=== PATIENT | female | born 1955 | race Caucasian/White ===

== ENCOUNTER 2016-12-30 16:58 | Inpatient (IN) | payer MEDICARE, BC ==
[~2016-12-30] VITALS: Ht 157.5 cm; Wt 86.2 kg
[2016-12-30 19:03] LABS: HEMOGLOBIN 12.1 gm/dl (12.3-15.3); RED BLOOD COUNT 4.46 M/UL (4.00-5.10); WHITE BLOOD COUNT 10.9 K/UL (4.5-11.0)
[2016-12-31 07:06] LABS: HEMOGLOBIN 11.1 gm/dl (12.3-15.3); RED BLOOD COUNT 4.15 M/UL (4.00-5.10); WHITE BLOOD COUNT 9.2 K/UL (4.5-11.0)
[2016-12-31] MEDS ORDERED: WARFARIN SODIUM5 MG PO (07:34)
[2016-12-31] MEDS ORDERED: COUMADIN2 MG PO (07:34)
[2016-12-31] MEDS ORDERED: CREON DR 24,001 EACH PO (07:35)
[2016-12-31] MEDS ORDERED: FERROUS SULFAT325 MG PO (07:35)
[2016-12-31] MEDS ORDERED: MULTIVITAMINS1 EAC1 PO (07:36)
[2016-12-31] MEDS ORDERED: PROBIOTIC1 EAC1 PO (07:36)
[2016-12-31] MEDS ORDERED: NOVOLOG FL100 UNIT/1 SQ (07:36)
[2016-12-31] MEDS ORDERED: IMDUR ER TAB 6060 MG PO (07:37)
[2016-12-31] MEDS ORDERED: LIPITOR TAB 1010 MG PO (07:37)
[2016-12-31] MEDS ORDERED: LOPRESSOR50 MG PO (07:37)
[2016-12-31] MEDS ORDERED: MAGNESIUM500 MG PO (07:38)
[2016-12-31] MEDS ORDERED: PROTONIX40 MG PO (07:38)
[2016-12-31] MEDS ORDERED: LANTUS SOL100 UNIT/1 SQ (07:38)
[2017-01-01 04:56] LABS: HEMOGLOBIN 10.7 gm/dl (12.3-15.3); RED BLOOD COUNT 3.98 M/UL (4.00-5.10)
[2017-01-01 05:12] LABS: WHITE BLOOD COUNT 6.5 K/UL (4.5-11.0)
[2017-01-02 05:42] LABS: RED BLOOD COUNT 4.09 M/UL (4.00-5.10); WHITE BLOOD COUNT 5.6 K/UL (4.5-11.0)
[2017-01-04 06:07] LABS: HEMOGLOBIN 10.7 gm/dl (12.3-15.3); RED BLOOD COUNT 4.07 M/UL (4.00-5.10); WHITE BLOOD COUNT 5.5 K/UL (4.5-11.0)
[2017-01-05 06:04] LABS: WHITE BLOOD COUNT 6.6 K/UL (4.5-11.0)
[2017-01-05 06:11] LABS: RED BLOOD COUNT 4.49 M/UL (4.00-5.10)
[2017-01-06 04:41] LABS: HEMOGLOBIN 10.9 gm/dl (12.3-15.3); RED BLOOD COUNT 4.11 M/UL (4.00-5.10); WHITE BLOOD COUNT 5.7 K/UL (4.5-11.0)
[2017-01-06] MEDS ORDERED: FLAGYL500 MG PO (08:18)
== END 2017-01-06 08:46 | disposition home or self-care (01) | DRG 394 ==
LOC: ER1 16:58 → ZEROF 23:46 → MED SURG 4 12-31 10:00
PROVIDERS: Emergency Medicine; Family Medicine; ADMIT Emergency Medicine
DX: K91.89 Other postprocedural complications and disorders of digestive system (principal); N39.0 Urinary tract infection, site not specified; A09 Infectious gastroenteritis and colitis, unspecified; K59.00 Constipation, unspecified; Z98.84 Bariatric surgery status; I12.9 Hypertensive chronic kidney disease with stage 1 through stage 4 chronic kidney disease, or unspecified chronic kidney disease; E11.22 Type 2 diabetes mellitus with diabetic chronic kidney disease; N18.3 Chronic kidney disease, stage 3 (moderate); E78.2 Mixed hyperlipidemia; K21.9 Gastro-esophageal reflux disease without esophagitis; G47.30 Sleep apnea, unspecified; Z96.643 Presence of artificial hip joint, bilateral; Z88.0 Allergy status to penicillin; Z79.01 Long term (current) use of anticoagulants; Z84.89 Family history of other specified conditions; Z83.3 Family history of diabetes mellitus; Z82.49 Family history of ischemic heart disease and other diseases of the circulatory system; Z82.62 Family history of osteoporosis; Z82.61 Family history of arthritis; Z85.07 Personal history of malignant neoplasm of pancreas; Z85.068 Personal history of other malignant neoplasm of small intestine; Z87.891 Personal history of nicotine dependence; Z86.718 Personal history of other venous thrombosis and embolism; Z87.440 Personal history of urinary (tract) infections
CPT/HCPCS: 36415; 71010; 80053; 81001; 82150; 82962; 83690; 84484; 85025; 85027; 85610; 85730; 87040; 87086; 93005; 96374; 96375; 96376; 99285; J0692; J1335; J2405; J7030; J7050

== ENCOUNTER → 2017-01-08 | Outpatient (CLI) | payer MEDICARE, BC ==
[~2017-01-08] MED LIST: COUMADIN2 MG PO; CREON DR 24,001 EACH PO; FERROUS SULFAT325 MG PO; FLAGYL500 MG PO; IMDUR ER TAB 6060 MG PO; LANTUS SOL100 UNIT/1 SQ; LIPITOR TAB 1010 MG PO; LOPRESSOR50 MG PO; MAGNESIUM500 MG PO; MULTIVITAMINS1 EAC1 PO; NOVOLOG FL100 UNIT/1 SQ; PROBIOTIC1 EAC1 PO; PROTONIX40 MG PO; WARFARIN SODIUM5 MG PO
== END ==
LOC: LAB 08:53
DX: I82.592 Chronic embolism and thrombosis of other specified deep vein of left lower extremity (principal); Z79.4 Long term (current) use of insulin; Z79.01 Long term (current) use of anticoagulants; Z79.899 Other long term (current) drug therapy
CPT/HCPCS: 36415; 85610

== ENCOUNTER → 2017-01-13 | Outpatient (CLI) | payer MEDICARE, BC | LOC: LAB 10:08 | DX: E11.22 Type 2 diabetes mellitus with diabetic chronic kidney disease (principal) | CPT/HCPCS: 36415; 82150; 83690; 85610 ==

== ENCOUNTER → 2017-01-17 | Outpatient (CLI) | payer MEDICARE, BC | LOC: LAB 09:05 | DX: I82.592 Chronic embolism and thrombosis of other specified deep vein of left lower extremity (principal) | CPT/HCPCS: 36415; 85610 ==

== ENCOUNTER → 2017-01-20 | Outpatient (CLI) | payer MEDICARE, BC | LOC: LAB 09:28 | DX: I82.592 Chronic embolism and thrombosis of other specified deep vein of left lower extremity (principal) | CPT/HCPCS: 36415; 85610 ==

== ENCOUNTER → 2017-01-23 | Outpatient (CLI) | payer MEDICARE, BC | LOC: LAB 10:03 | DX: I82.592 Chronic embolism and thrombosis of other specified deep vein of left lower extremity (principal) | CPT/HCPCS: 36415; 85610 ==

== ENCOUNTER → 2017-01-29 | Outpatient (CLI) | payer MEDICARE, BC | LOC: LAB 09:11 | DX: I82.592 Chronic embolism and thrombosis of other specified deep vein of left lower extremity (principal) | CPT/HCPCS: 36415; 85610 ==

== ENCOUNTER → 2017-02-04 | Outpatient (CLI) | payer MEDICARE, BC | LOC: LAB 08:56 | DX: I82.592 Chronic embolism and thrombosis of other specified deep vein of left lower extremity (principal) | CPT/HCPCS: 36415; 85610 ==

== ENCOUNTER → 2017-02-06 | Outpatient (CLI) | payer MEDICARE, BC | LOC: LAB 13:15 | DX: Z51.81 Encounter for therapeutic drug level monitoring (principal); I82.592 Chronic embolism and thrombosis of other specified deep vein of left lower extremity; Z79.01 Long term (current) use of anticoagulants | CPT/HCPCS: 36415; 85610 ==

== ENCOUNTER → 2017-02-11 | Outpatient (CLI) | payer MEDICARE, BC | LOC: LAB 09:21 | DX: Z51.81 Encounter for therapeutic drug level monitoring (principal); I82.592 Chronic embolism and thrombosis of other specified deep vein of left lower extremity; Z79.01 Long term (current) use of anticoagulants | CPT/HCPCS: 36415; 85610 ==

== ENCOUNTER → 2017-02-18 | Outpatient (CLI) | payer MEDICARE, BC | LOC: LAB 09:05 | DX: Z51.81 Encounter for therapeutic drug level monitoring (principal); I82.529 Chronic embolism and thrombosis of unspecified iliac vein; Z79.01 Long term (current) use of anticoagulants | CPT/HCPCS: 36415; 85610 ==

== ENCOUNTER → 2017-03-03 | Outpatient (CLI) | payer MEDICARE, BC | LOC: LAB 10:31 | DX: Z51.81 Encounter for therapeutic drug level monitoring (principal); I82.592 Chronic embolism and thrombosis of other specified deep vein of left lower extremity; Z79.01 Long term (current) use of anticoagulants | CPT/HCPCS: 36415; 85610 ==

== ENCOUNTER → 2017-03-10 | Outpatient (CLI) | payer MEDICARE, BC | LOC: LAB 10:03 | DX: I82.592 Chronic embolism and thrombosis of other specified deep vein of left lower extremity (principal) | CPT/HCPCS: 36415; 85610 ==